=== PATIENT | female | born 1990 | race African-American/Black ===

== ENCOUNTER 2022-07-05 10:36 | Outpatient (CLI) | payer MEDICAID, SELFPAY ==
--- NOTE | 2022-07-05 13:56 | W.ANESCHARGE ---
Anesthesia Charges Start Date/Time Anesthesia Start Date: 07/05/22 Anesthesia Start Time: 13:15 Stop Date/Time Anesthesia Stop Date: 07/05/22 Anesthesia Stop Time: 13:52 Summary Emergency: No
--- NOTE | 2022-07-05 14:01 | W.ANESCHARGE ---
Anesthesia Charges Start Date/Time Anesthesia Start Date: 07/05/22 Anesthesia Start Time: 13:15 Stop Date/Time Anesthesia Stop Date: 07/05/22 Anesthesia Stop Time: 13:52 Summary Emergency: No
== END 2022-07-05 10:37 | disposition home or self-care (01) ==
LOC: OP CLINIC 10:45
PROVIDERS: Visit Provider Internal Medicine Gastroenterology
DX: R10.11 Right upper quadrant pain (principal); K63.5 Polyp of colon; K52.9 Noninfective gastroenteritis and colitis, unspecified; R10.13 Epigastric pain; K21.9 Gastro-esophageal reflux disease without esophagitis; R19.8 Other specified symptoms and signs involving the digestive system and abdomen
CPT/HCPCS: 00813; 43239; 45380; 88305; J2704